=== PATIENT | male | born 1940 | race Caucasian/White ===

== ENCOUNTER 2016-08-24 09:24 | Inpatient (IN) | payer MEDICARE, OTHER ==
[2016-08-24] MEDS ORDERED: NORVASC2.5 M1 PO (09:57)
[2016-08-24] MEDS ORDERED: LIPITOR80 M1 PO (09:58)
[2016-08-24] MEDS ORDERED: ASPIRIN EC81 MG PO (09:58)
[2016-08-24] MEDS ORDERED: CALCIUM600 M1 PO (10:01)
[2016-08-24] MEDS ORDERED: GLUCOTROL10 M1 PO (10:02)
[2016-08-24] MEDS ORDERED: GLUCOPHAGE1000 M1 PO (10:02)
[2016-08-24] MEDS ORDERED: IRON18 M1 PO (10:02)
[2016-08-24] MEDS ORDERED: POTASSIUM CHLO10 ME3 PO (10:03)
[2016-08-24] MEDS ORDERED: CHLORTHALIDONE25 M1 PO (10:03)
[2016-08-24] MEDS ORDERED: ACTOS30 M1 PO (10:03)
[2016-08-24] MEDS ORDERED: PRINIVIL20 M1 PO (10:04)
[2016-08-24] MEDS ORDERED: LASIX20 M1 PO (10:04)
[2016-08-24] MEDS ORDERED: COREG25 M1 PO (10:04)
[2016-08-24] MEDS ORDERED: PROSCAR5 M1 PO (10:05)
[2016-08-24] MEDS ORDERED: FLOMAX0.4 M1 PO (10:05)
[2016-08-24 14:45] LABS: C-REACTIVE PROTEIN <0.3 mg/dl (0-0.9); CREATINE PHOSPHOKINASE (CPK) 276 U/L (35-232)
[2016-08-24 14:58] LABS: PROCALCITONIN <0.05 ng/ml (0.05-0.09)
[2016-08-24 15:04] LABS: TSH-THYROID STIMULATING HORM. 0.91 uIU/ml (0.40-3.80)
[2016-08-25 04:04] LABS: BASO % 0.2 % (0-2); EOS % 0.5 % (0-7); HCT-HEMATOCRIT 37.3 % (36.0-53.5); HGB-HEMOGLOBIN 12.1 gm/dl (13.5-17.0); IMMATURE GRANULOCYTES ABSOLUTE 0.01 tho/cmm (0-0.03); IMMATURE GRANULOCYTES PERCENT 0.2 % (0-0.3); LYMPH % 16.8 % (20-45); MCH (MEAN CORPUSCULAR HGB) 29.6 pg (28.0-32.0); MCHC MEAN CORPUSCULAR HGB CONC 32.4 % (32.0-36.0); MCV (MEAN CELL VOLUME) 91.2 fl (82.0-96.0); MEAN PLATELET VOLUME 9.3 cmc (9.4-12.4); MONO % 10.2 % (0-12); MONOCYTE ABSOLUTE COUNT 0.6 tho/cmm (0.0-1.2); NEUTROPHIL ABSOLUTE COUNT 4.2 tho/cmm (1.6-8.0); NEUTROPHIL-AUTOMATED 4.2 tho/cmm (1.6-8.0); NEUTROPHILS % 72.1 % (40-80); PLATELET COUNT 150 tho/cmm (150-450); RED BLOOD COUNT 4.09 mil/cmm (4.40-5.70); RED CELL DISTRIBUTION WIDTH 14.8 % (12.4-16.4); WHITE BLOOD COUNT 5.9 tho/cmm (4.0-10.0)
[2016-08-25 04:13] LABS: ANION GAP 12 mmol/L (0-20); BLOOD UREA NITROGEN 16 mg/dl (6-24); CALCIUM 8.4 mg/dl (8.5-10.5); CARBON DIOXIDE-VENOUS 27 mmol/L (22-32); CHLORIDE 105 mmol/l (96-110); GLUCOSE 142 mg/dL (70-110); POTASSIUM 3.4 mmol/L (3.7-5.1); SODIUM 141 mmol/L (135-145); eGFR VALUE FOR BLACK >90 mL/Min
[2016-08-26 05:24] LABS: BASO % 0.2 % (0-2); EOSINOPHIL ABSOLUTE COUNT 0.1 tho/cmm (0.0-0.7); HCT-HEMATOCRIT 39.2 % (36.0-53.5); HGB-HEMOGLOBIN 12.6 gm/dl (13.5-17.0); IMMATURE GRANULOCYTES ABSOLUTE 0.01 tho/cmm (0-0.03); IMMATURE GRANULOCYTES PERCENT 0.2 % (0-0.3); LYMPH % 23.7 % (20-45); LYMPH ABSOLUTE COUNT 1.2 tho/cmm (0.8-4.5); MCH (MEAN CORPUSCULAR HGB) 29.5 pg (28.0-32.0); MCHC MEAN CORPUSCULAR HGB CONC 32.1 % (32.0-36.0); MCV (MEAN CELL VOLUME) 91.8 fl (82.0-96.0); MEAN PLATELET VOLUME 9.9 cmc (9.4-12.4); MONO % 11.9 % (0-12); MONOCYTE ABSOLUTE COUNT 0.6 tho/cmm (0.0-1.2); NEUTROPHIL ABSOLUTE COUNT 3.2 tho/cmm (1.6-8.0); NEUTROPHIL-AUTOMATED 3.2 tho/cmm (1.6-8.0); PLATELET COUNT 173 tho/cmm (150-450); RED BLOOD COUNT 4.27 mil/cmm (4.40-5.70); RED CELL DISTRIBUTION WIDTH 14.7 % (12.4-16.4); WHITE BLOOD COUNT 5.1 tho/cmm (4.0-10.0)
[2016-08-26 05:38] LABS: ANION GAP 11 mmol/L (0-20); BLOOD UREA NITROGEN 17 mg/dl (6-24); CALCIUM 8.4 mg/dl (8.5-10.5); CARBON DIOXIDE-VENOUS 30 mmol/L (22-32); CHLORIDE 105 mmol/l (96-110); CREATININE 0.92 mg/dl (0.60-1.30); GLUCOSE 144 mg/dL (70-110); POTASSIUM 3.9 mmol/L (3.7-5.1); SODIUM 142 mmol/L (135-145); eGFR VALUE FOR BLACK >90 mL/Min
[2016-08-26] MEDS ORDERED: KEPPRA500 M3 PO (13:56)
[2016-08-26] MEDS ORDERED: ALDACTONE25 M1 PO (13:57)
[2016-08-26] MEDS ORDERED: NORCO 5-325 TA1 EACH PO ×2 (13:59→15:44)
[2016-08-26] MEDS ORDERED: ULTRAM50 M1 PO (14:00)
[2016-08-26] MEDS ORDERED: MIRALAX17 G2 PO (15:43)
[2016-08-26] MEDS ORDERED: ZOFRAN4 M2 PO (15:44)
== END 2016-08-26 16:05 | DRG 101 ==
LOC: PCUA 09:24
PROVIDERS: Family Medicine; Internal Medicine Cardiovascular Disease; ADMIT Family Medicine
PROC: 5A09357 Assistance with Respiratory Ventilation, Less than 24 Consecutive Hours, Continuous Positive Airway Pressure (ICD-10-PCS; 2016-08-24)
PROC: 4A023N7 Measurement of Cardiac Sampling and Pressure, Left Heart, Percutaneous Approach (ICD-10-PCS; principal; 2016-08-25)
PROC: B2111ZZ Fluoroscopy of Multiple Coronary Arteries using Low Osmolar Contrast (ICD-10-PCS; 2016-08-25)
DX: R56.9 Unspecified convulsions (principal); I42.9 Cardiomyopathy, unspecified; I11.0 Hypertensive heart disease with heart failure; I50.22 Chronic systolic (congestive) heart failure; I25.10 Atherosclerotic heart disease of native coronary artery without angina pectoris; E78.5 Hyperlipidemia, unspecified; N40.0 Benign prostatic hyperplasia without lower urinary tract symptoms; E11.9 Type 2 diabetes mellitus without complications; M75.102 Unspecified rotator cuff tear or rupture of left shoulder, not specified as traumatic; W06.XXXA Fall from bed, initial encounter; Y92.013 Bedroom of single-family (private) house as the place of occurrence of the external cause; Z79.02 Long term (current) use of antithrombotics/antiplatelets; Z79.82 Long term (current) use of aspirin; G47.33 Obstructive sleep apnea (adult) (pediatric); I49.3 Ventricular premature depolarization; F40.240 Claustrophobia; M47.9 Spondylosis, unspecified
CPT/HCPCS: A9577; C1894; J1644; J1815; J1953; J2060; J2250; J3010; J3480; J7030; Q9967